=== PATIENT | female | born 1940 | race Caucasian/White ===

== ENCOUNTER 2017-03-04 11:59 | Emergency (ER) | payer MEDICARE, OTHER ==
--- NOTE | 2017-03-04 13:12 | EDM.PDOC ---
ED HPI GENERAL MEDICAL PROBLEM - General Chief Complaint: General Stated Complaint: LEFT NECK PAIN WITH SHOULDER PAIN Time Seen by Provider: 03/04/17 12:50 Source of Information: Reports: Patient, Old Records, RN History Limitations: Reports: No Limitations - History of Present Illness INITIAL COMMENTS - FREE TEXT/NARRATIVE: 76 yo female here with intermittent L post neck and shoulder pain. Occasionally radiates down her arm. Had a myocardial perfusion scan 18 mos ago that was normal. Sx's not related to exertion or anything else that the patient can think of. Recently was seen in the clinic for this and had a normal EKG and CPK. Has been using ICY HOT on her arm and has broken out from this with an itchy rash. Sx's for almost a month now. Clinic tests include X-rays that reveal marked DJD of the neck. Is not currently taking any meds for her sx's. Was offered PT in the clinic and declined at that time. Onset: Gradual Onset Date: 02/06/17 Duration: Week(s):, Waxing/Waning Location: Reports: Neck (L posterior), Back (L side) Quality: Reports: Ache Severity: Moderate Improves with: Reports: Other (Massage) Worsens with: Reports: Other (unknown) Context: Reports: Other (DJD of spine) Associated Symptoms: Reports: No Other Symptoms Treatments MANAGER PORT: Reports: Other (see below) (massage from sister and ICY HOT) - Related Data Allergies Allergy/AdvReac Type Severity Reaction Status Date / Time atorvastatin calcium Allergy Rash Verified 03/04/17 12:27 [From Lipitor] tramadol Allergy Itching Verified 03/04/17 12:27 Home Meds: Home Meds Aspirin [Halfprin] 81 mg PO DAILY 11/19/13 [History] Simvastatin [Zocor] 20 mg PO BEDTIME 11/19/13 [History] Vitamin B Complex [B Complex] 1 each PO DAILY 11/19/13 [History] Multivitamin [Multivitamins] 1 tab PO DAILY 10/14/15 [History] Cyclobenzaprine [Flexeril] 5 - 10 mg PO TID PRN #14 tab 03/04/17 [Rx] Metoprolol Tartrate 12.5 mg PO BID 03/04/17 [History] amLODIPine [Norvasc] 5 mg PO DAILY 03/04/17 [History] Past Medical History HEENT History: Reports: Impaired Vision Cardiovascular History: Reports: Heart Murmur, High Cholesterol, Hypertension Respiratory History: Reports: Sleep Apnea Gastrointestinal History: Reports: Colon Polyp, GERD Genitourinary History: Reports: Renal Calculus INNOVATION ANALYST History: Reports: Endocrine/Metabolic History: Reports: Other (See Below) Other Endocrine/Metabolic History: "prediabetic" - Infectious Disease History Infectious Disease History: Reports: Chicken Pox, Measles, Pertussis (Whooping Cough) - Past Surgical History GI Surgical History: Reports: Appendectomy, Colonoscopy, Polypectomy Female Surgical History: Reports: Hysterectomy Musculoskeletal Surgical History: Reports: Hip Replacement Social & Family History - Tobacco Use Smoking Status *Q: Never Smoker Second Hand Smoke Exposure: No - Caffeine Use Caffeine Use: Reports: Coffee - Recreational Drug Use Recreational Drug Use: No ED ROS GENERAL - Review of Systems Review Of Systems: See Below Constitutional: Reports: No Symptoms HEENT: Reports: No Symptoms Respiratory: Reports: No Symptoms Cardiovascular: Reports: No Symptoms Endocrine: Reports: No Symptoms GI/Abdominal: Reports: No Symptoms : Reports: No Symptoms Musculoskeletal: Reports: Neck Pain, Shoulder Pain (L posterior), Arm Pain (at times, not now) Skin: Reports: Rash (Since using ICY HOT, itchy) Neurological: Reports: No Symptoms Psychiatric: Reports: No Symptoms ED EXAM, GENERAL - Physical Exam Exam: See Below Exam Limited By: No Limitations General Appearance: Alert, WD/WN, No Apparent Distress Eye Exam: Bilateral Eye: Conjunctival Injection, EOMI, Normal Inspection Ears: Normal External Exam, Normal Canal, Hearing Grossly Normal Ear Exam: Bilateral Ear: Auricle Normal, Canal Normal Nose: Normal Inspection, Normal Mucosa, No Blood Throat/Mouth: Normal Inspection, Normal Lips, Normal Oropharynx, Normal Voice, No Airway Compromise Head: Atraumatic, Normocephalic Neck: Normal Inspection, Supple, Tender Lateral (L post lateral neck and trapezius muscle tender with palpation. ), Other (ROM testing is not painful, has limitation to extension of neck only.) Respiratory/Chest: No Respiratory Distress, Lungs Clear, Normal Breath Sounds, No Accessory Muscle Use Cardiovascular: Regular Rate, Rhythm, No Edema GI/Abdominal: Normal Bowel Sounds, Soft, Non-Tender Back Exam: Normal Inspection. No: CVA Tenderness (R), CVA Tenderness (L) Extremities: Normal Inspection, Normal Range of Motion, Non-Tender, No Pedal Edema Neurological: Alert, Oriented, CN II-XII Intact, Normal Cognition, No Motor/ Sensory Deficits Psychiatric: Normal Affect, Normal Mood Skin Exam: Warm, Dry, Intact, Normal Color, Rash (L arm only, red and blotchy, no vesicles(never were any vesicles per patient)) Lymphatic: No Adenopathy Course - Vital Signs Last Recorded V/S: Last Vital Signs Temp 36.7 C 03/04/17 12:32 Pulse 80 03/04/17 12:39 Resp 13 03/04/17 12:39 BP 145/70 H 03/04/17 12:39 Pulse Ox 95 03/04/17 12:39 Departure - Departure Time of Disposition: 13:15 Disposition: Home, Self-Care 01 Condition: Good Clinical Impression: Muscular pain, Arthritis of neck - Discharge Information Prescriptions: Cyclobenzaprine [Flexeril] 5 - 10 mg PO TID PRN #14 tab PRN Reason: Pain Instructions: Shoulder Pain, [id number] Referrals: Renea Rutledge NP [Primary Care Provider] - Forms: ED Department Discharge Additional Instructions: Take Flexeril 5 mg every 8 hrs during the day and 10 mg at bedtime. Try either massage therapy or physical therapy. Moist heat to area. Acetaminophen is also safe to take. Recheck if not improving.
[2017-03-04 13:41] VITALS: BP 128/63
== END 2017-03-04 13:41 | disposition home or self-care (01) ==
LOC: JP.ED 11:59
DX: M46.92 Unspecified inflammatory spondylopathy, cervical region (principal); M79.1 Myalgia; I10 Essential (primary) hypertension; E78.00 Pure hypercholesterolemia, unspecified; Z88.5 Allergy status to narcotic agent; Z88.8 Allergy status to other drugs, medicaments and biological substances; Z79.82 Long term (current) use of aspirin
CPT/HCPCS: 99283

== ENCOUNTER 2019-02-28 06:22 | Day surgery (SDC) | payer MEDICARE, OTHER ==
[2019-02-28] MEDS ORDERED: Sodium Chloride 0.9% 1,000 ML IV SCH (07:15)
[2019-02-28] MEDS ORDERED: fentaNYL 100 MCG/2 ML SDV ONE (07:21)
[2019-02-28] MEDS ORDERED: Propofol 200 MG/20 ML SDV ONE (07:21)
[2019-02-28] MEDS ORDERED: Midazolam 1 MG/ML 2 ML SDV ONE (07:21)
[2019-02-28 10:21] VITALS: BP 125/69; PULSE 90
--- NOTE | 2019-03-01 09:33 | OR ---
DATE OF PROCEDURE: 02/28/2019 SURGEON: Steven Arreguin MD PROCEDURE: Colonoscopy. FINDINGS: 1. Diverticulosis, mild, limited to sigmoid colon. 2. Sigmoid colon polyp, approximately 5 mm, completely removed using cold biopsy forceps. 3. Cecal mass, most consistent with a sessile polyp versus malignancy. COMPLICATIONS: None. TELECOM COORDINATOR: None. ANESTHESIA: MAC. PREOPERATIVE DIAGNOSIS: Screening colonoscopy. POSTOPERATIVE DIAGNOSIS: Screening colonoscopy. RISKS: Risks, benefits, alternatives, and limitations including, but not limited to infection, bleeding, perforation were explained to the patient, who wished to proceed. PROCEDURE IN DETAIL: The patient was placed in left lateral decubitus position. Digital rectal exam was performed without abnormality. Scope was introduced and advanced into the cecum itself. Within the cecum, approximately 2 cm from the appendiceal orifice, there was a sessile type mass/polyp. This was identified, and Stephany Ink was used to rosa elena the polyp and to submucosally dissect it for elevation for removal. This was then removed approximately 95% using the hot snare wire. No abnormal bleeding was noted after this. No evidence of perforation. This scope was then brought back and the aforementioned polyp was also identified and completely removed. Diverticulosis would be described as mild, limited to sigmoid colon and without evidence of diverticulitis or bleeding. No abnormalities on retroflexion. The patient tolerated the procedure well. Steven Arreguin MD /[id number]
== END 2019-02-28 10:59 | disposition home or self-care (01) ==
LOC: JP.SDS 06:22
PROVIDERS: ATTEND Surgery
DX: Z12.11 Encounter for screening for malignant neoplasm of colon (principal); D12.0 Benign neoplasm of cecum; D12.4 Benign neoplasm of descending colon; K57.30 Diverticulosis of large intestine without perforation or abscess without bleeding; I10 Essential (primary) hypertension; E78.5 Hyperlipidemia, unspecified; I25.10 Atherosclerotic heart disease of native coronary artery without angina pectoris; E11.9 Type 2 diabetes mellitus without complications; G47.33 Obstructive sleep apnea (adult) (pediatric); Z88.8 Allergy status to other drugs, medicaments and biological substances; Z88.5 Allergy status to narcotic agent; Z79.82 Long term (current) use of aspirin; Z79.899 Other long term (current) drug therapy
CPT/HCPCS: 88305; J2250; J2704; J3010; J7030

== ENCOUNTER 2019-07-12 06:13 | Day surgery (SDC) | payer MEDICARE ==
[2019-07-12] MEDS ORDERED: Dextrose 5%-Lactated Ringers 1,000 ML IV SCH (07:00)
[2019-07-12] MEDS ORDERED: Propofol 200 MG/20 ML SDV ONE (07:54)
[2019-07-12] MEDS ORDERED: fentaNYL 100 MCG/2 ML SDV ONE (07:54)
[2019-07-12 10:40] VITALS: BP 122/82; PULSE 71
--- NOTE | 2019-07-22 14:10 | OR ---
DATE OF PROCEDURE: 07/12/2019 SURGEON: Thaddeus West MD PREOPERATIVE DIAGNOSIS: Status post sessile polyp removal endoscopically in the cecum and descending colon. POSTOPERATIVE DIAGNOSES: 1. Status post sessile polyp removal endoscopically in the cecum and descending colon. 2. No persistent or recurrent polyp formation evident. 3. Left colonic diverticulosis. OPERATIVE PROCEDURE: Flexible colonoscopy. ANESTHESIA: IV sedation. INDICATIONS: This is a 79-year-old who underwent a colonoscopy per Dr. Arreguin, and this past February, the patient was noted to have a polyp involving the descending colon as well as the cecum. The cecal polypectomy was more or less in a piecemeal fashion, and given this, the patient was recommended to undergo a repeat colonoscopy in April. She has deferred this until present, and plan is to proceed with a flexible colonoscopy with biopsies and/or polypectomy as indicated. Potential risks of the procedure including bleeding and perforation were discussed, and the patient wishes to proceed. DETAILS OF PROCEDURE: The patient was taken to the operating room and placed in the left lateral decubitus position. IV sedation was administered, after which a digital rectal exam was performed, and it was unremarkable. Colonoscope was then passed into the rectum with retroflexion revealing uncomplicated hemorrhoidal columns. Scope was eventually passed to the level of the cecum. At no point were there any obvious recurrent or persistent polyp formations. The patient did have some left colonic diverticulosis. Scope was then withdrawn and the above findings reconfirmed. Given the clinical scenario, I think we would recommend a repeat colonoscopy in 1 year again to make sure there is not some regrowth of polypoid tissue within the cecal area specifically. Thaddeus West MD /[id number]
== END 2019-07-12 11:27 | disposition home or self-care (01) ==
LOC: JP.SDS 06:13
PROVIDERS: ATTEND Surgery
DX: K57.30 Diverticulosis of large intestine without perforation or abscess without bleeding (principal); K64.9 Unspecified hemorrhoids; K21.9 Gastro-esophageal reflux disease without esophagitis; E11.9 Type 2 diabetes mellitus without complications; I10 Essential (primary) hypertension; Z98.890 Other specified postprocedural states; Z86.010 Personal history of colon polyps; Z88.8 Allergy status to other drugs, medicaments and biological substances; Z88.5 Allergy status to narcotic agent
CPT/HCPCS: 45378; J2704; J3010; J7121

== ENCOUNTER 2019-12-23 05:22 | Day surgery (SDC) | payer MEDICARE ==
[2019-12-23] MEDS ORDERED: Dextrose 5%-Lactated Ringers 1,000 ML IV SCH (06:00)
[2019-12-23] MEDS ORDERED: fentaNYL 100 MCG/2 ML SDV ONE (07:25)
[2019-12-23] MEDS ORDERED: Propofol 200 MG/20 ML SDV ONE (07:25)
[2019-12-23 08:57] VITALS: PULSE 82
[2019-12-23 08:58] VITALS: BP 119/68
--- NOTE | 2019-12-24 08:48 | OR ---
DATE OF PROCEDURE: 12/23/2019 SURGEON: Thaddeus West MD PREOPERATIVE DIAGNOSIS: Active gastroesophageal reflux disease. POSTOPERATIVE DIAGNOSIS: A large hiatal hernia associated with strikingly ulcerated gastroesophageal reflux disease. OPERATIVE PROCEDURE: Upper gastrointestinal endoscopy with biopsy of esophagogastric junction. ANESTHESIA: IV sedation. INDICATION FOR PROCEDURE: A 79-year-old female presenting with ongoing proton pump inhibitor therapy. She has ongoing heartburn. The plan is to proceed with upper GI endoscopy with biopsies and/or dilation as indicated. Potential risks including bleeding and perforation were discussed, and the patient wishes to proceed. DETAILS OF PROCEDURE: The patient was taken to the operative room placed in a left lateral decubitus position. IV sedation was administered, after which the upper GI endoscope was passed orally through the length of the esophagus into the stomach with retroflexion view of the fundus, thereafter through the pyloric channel into the junction of the third and fourth portions of the duodenum. Findings included some redness and edema of the hypopharynx and larynx. The upper esophageal sphincter, upper esophagus, and esophageal body were otherwise unremarkable. The patient did have a fairly large hiatal hernia measuring 5 cm. The striking finding was that of some coffee-ground material through much of the length of the esophagus, consistent with some low-grade bleeding. At the EG junction, there was active ulcerative esophagitis with 3 well-defined ulcers extending upward from the esophageal junction mucosal line. These were covered with fibrinous exudate. At this point, other than one had some clot over the surface likely resulting in the recent bleeding. Otherwise, the stomach, pyloric channel, and visualized portions of the duodenum were unremarkable. At this point, multiple biopsies were obtained from esophagogastric junction. Sent for histologic evaluation. Minimal bleeding from the biopsy sites was seen, and the procedure then concluded. At this point, will see the patient back on Monday for followup. She would at this point probably be a good candidate for antireflux procedure given the aggressiveness of her reflux disease despite proton pump inhibitor therapy. Thaddeus West MD /[id number]
== END 2019-12-23 09:00 | disposition home or self-care (01) ==
LOC: JP.SDS 05:22
PROVIDERS: ATTEND Surgery
DX: K21.9 Gastro-esophageal reflux disease without esophagitis (principal); K44.9 Diaphragmatic hernia without obstruction or gangrene; K25.9 Gastric ulcer, unspecified as acute or chronic, without hemorrhage or perforation; G47.33 Obstructive sleep apnea (adult) (pediatric); I10 Essential (primary) hypertension; I25.10 Atherosclerotic heart disease of native coronary artery without angina pectoris; E11.9 Type 2 diabetes mellitus without complications
CPT/HCPCS: 43239; 88305; J2704; J3010; J7121

== ENCOUNTER 2019-12-27 06:48 | Inpatient (IN) | payer MEDICARE ==
[~2019-12-27 06:48] MED LIST: Dexamethasone 4 MG/ML SDV ONE; Lidocaine 2% 5 ML SDV ONE; Ondansetron 4 MG/2 ML SDV ONE; Propofol 200 MG/20 ML SDV ONE; Rocuronium 50 MG/5 ML Vial ONE; Succinylcholine 200 MG/10 ML MDV ONE; fentaNYL 250 MCG/5 ML SDV ONE
[2019-12-27] MEDS ORDERED: Acetaminophen 500 MG Tab PO ONE (07:00)
[2019-12-27] MEDS ORDERED: Dextrose 5%-Lactated Ringers 1,000 ML IV SCH (08:00)
[2019-12-27] MEDS ORDERED: Ketamine 500 MG/5 ML MDV IV SCH (08:45)
[2019-12-27] MEDS ORDERED: Ketamine 50 MG in Sodium Chloride 0.9% 49.5 ML IV SCH (08:45)
[2019-12-27] MEDS ORDERED: ceFAZolin 2 GM in Premix Bag 1 BAG IV ONE (09:00)
[2019-12-27] MEDS ORDERED: Midazolam 1 MG/ML 2 ML SDV ONE (10:12)
[2019-12-27] MEDS ORDERED: Glycopyrrolate 0.2 MG/ML 5 ML MDV ONE (10:32)
[2019-12-27] MEDS ORDERED: ePHEDrine 50 MG/ML SDV ONE (10:43)
[2019-12-27] MEDS ORDERED: Sodium Chloride 0.9% 10 ML ONE (10:43)
[2019-12-27] MEDS ORDERED: Sugammadex Sodium 200 MG/2 ML VIAL ONE (11:10)
[2019-12-27] MEDS ORDERED: Rocuronium 50 MG/5 ML Vial ONE (11:21)
[2019-12-27] MEDS ORDERED: hydrOXYzine HCL 100 MG/2 ML SDV IM ONE (11:47)
[2019-12-27] MEDS ORDERED: fentaNYL 100 MCG/2 ML SDV IVPUSH ONE (12:14)
[2019-12-27] MEDS ORDERED: hydrOXYzine HCL 100 MG/2 ML SDV IM PRN (13:22)
[2019-12-27] MEDS ORDERED: Ondansetron 4 MG/2 ML SDV IVPUSH PRN (13:23)
[2019-12-27] MEDS: Pantoprazole 40 MG Vial IV SCH (14:07)
[2019-12-27] MEDS: Metoclopramide 10 MG/2 ML SDV IVPUSH SCH ×2 (16:23→21:01)
[2019-12-27] MEDS: Acetaminophen 325 MG Tab PO SCH ×2 (16:24→21:01)
[2019-12-27] MEDS ORDERED: HYDROmorphone 0.5 MG/0.5 ML Syringe IVPUSH PRN (17:00)
[2019-12-27] MEDS ORDERED: HYDROmorphone 1 MG/ML Syringe IV PRN (17:00)
[2019-12-27] MEDS: Dextrose 5%-Lactated Ringers 1,000 ML IV SCH (19:37)
[2019-12-27] MEDS: Simvastatin 20 MG Tab PO SCH (20:51)
[2019-12-27] MEDS: amLODIPine 5 MG Tab PO SCH (20:51)
[2019-12-27] MEDS: Metoprolol Tartrate 25 MG Tab PO SCH (20:51)
[2019-12-28] MEDS: Dextrose 5%-Lactated Ringers 1,000 ML IV SCH (01:59)
[2019-12-28] MEDS: Acetaminophen 325 MG Tab PO SCH ×4 (03:44→22:08)
[2019-12-28] MEDS: Metoclopramide 10 MG/2 ML SDV IVPUSH SCH ×2 (03:45→09:30)
[2019-12-28] MEDS ORDERED: Dextrose 5%-Lactated Ringers 1,000 ML IV SCH (08:15)
[2019-12-28] MEDS: Aspirin 81 MG Tab.EC PO SCH (09:30)
[2019-12-28] MEDS: Metoprolol Tartrate 25 MG Tab PO SCH ×2 (09:30→20:38)
[2019-12-28] MEDS: Pantoprazole 40 MG Vial IV SCH (09:30)
[2019-12-28] MEDS: amLODIPine 5 MG Tab PO SCH (20:38)
[2019-12-28] MEDS: Simvastatin 20 MG Tab PO SCH (20:38)
[2019-12-29] MEDS: Acetaminophen 325 MG Tab PO SCH ×2 (04:30→09:02)
[2019-12-29] MEDS: Pantoprazole 40 MG Vial IV SCH (08:26)
[2019-12-29] MEDS: Metoprolol Tartrate 25 MG Tab PO SCH (08:45)
[2019-12-29] MEDS: Aspirin 81 MG Tab.EC PO SCH (08:53)
[2019-12-29 08:58] VITALS: BP 97/46; PULSE 72
--- NOTE | 2020-01-01 12:09 | PN ---
DATE OF SERVICE: 12/28/2019 The patient has been afebrile with stable vital signs status post laparoscopic Ian fundoplication yesterday. Clinically, she is doing well at this point. We will repeat a full liquid diet. She did not like the way the Reglan made her feel. We will discontinue that, and she is only requiring Tylenol for pain, otherwise. She will likely be ready for discharge home tomorrow. Thaddeus West MD /[id number]
--- NOTE | 2020-01-01 12:48 | DISCH ---
FINAL DIAGNOSES: 1. Gastroesophageal reflux disease refractory to medical management associated with large paraesophageal diaphragmatic hernia. 2. Mediastinal lipoma. 3. 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 SECONDARY DIAGNOSES: 1. History of hypertension, history of hyperlipidemia. 2. History of osteoarthritis. 3. Obstructive sleep apnea, on CPAP. 4. Type 2 diabetes mellitus, not requiring specific medical treatment. OPERATIVE PROCEDURE: Done on 12/26, diagnostic laparoscopy with: 1. Repair of paraesophageal diaphragmatic hernia with mesh with Ian fundoplication. 2. Excision of mediastinal lipoma. 3. Excision of submucosal nodular lesion on gastric fundus. SUMMARY: This is a 79-year-old female presenting with quite severe heartburn. On Monday, 12/22, the patient underwent an upper endoscopy, which showed a large hiatal hernia with actively bleeding ulcerated esophagitis despite the patient being on twice a day omeprazole 40 mg regimen. Given this, the patient wished to proceed with a Ian fundoplication, which was done on the date of admission with the attendant above procedures. The small nodular lesion on the gastric fundus most likely will be a gastrointestinal stromal tumor, which at that size will not require any specific followup. The patient tolerated full liquid diet well and will be discharged home with a full liquid diet for 2 weeks postoperatively, then begin soft solids as tolerated and requiring only Tylenol for pain. Follow up with Dr. West at [facility] on 01/08/2020. /[id number]
--- NOTE | 2020-01-02 15:53 | OR ---
DATE OF PROCEDURE: 12/27/2019 SURGEON: Thaddeus West MD PREOPERATIVE DIAGNOSIS: Gastroesophageal reflux disease refractory to medical management associated with a large hiatal hernia. POSTOPERATIVE DIAGNOSES: 1. Large paraesophageal diaphragmatic hernia with associated gastroesophageal reflux disease refractory to medical management. 2. Mediastinal lipoma. 3. Submucosal nodular lesion, gastric fundus. OPERATIVE PROCEDURES: Diagnostic laparoscopy with: 1. Repair of a paraesophageal diaphragmatic hernia with mesh with Ian fundoplication (72481). 2. Excision of a mediastinal lipoma (87439). 3. Excision of a submucosal nodular lesion, gastric fundus (47929). ANESTHESIA: General. PRODUCT INTRODUCTION MANAGER: Nazanin Garcia PA-C INDICATIONS FOR PROCEDURE: This is a 79-year-old female presenting with gastroesophageal reflux disease refractory to medical management. Earlier this week, the patient underwent an upper endoscopy and while on b.i.d. proton pump inhibitor had active bleeding from ulcers within her distal esophagus. After preoperative evaluation and discussion, she wished to proceed with a Ian fundoplication. Potential risks, including bleeding, infection, injury to underlying viscera, problems with fundoplication such as dysphagia, gas-bloat syndrome, and disorders of gastric emptying rate as well as possible incomplete relief of reflux symptoms and lastly the remote possibility of cardiopulmonary, septic, or hemorrhagic complications leading to , were discussed, and the patient wishes to proceed. DETAILS OF PROCEDURE: The patient was taken to the operating room, and after general endotracheal anesthesia was induced, she was placed in lithotomy position and the abdomen prepped and draped. 15 cm inferior and 5 cm left of the xiphoid process, a transverse incision was made and the peritoneal cavity entered under direct vision with an Optiview trocar and inflated to 15 mmHg pressure with CO2. The laparoscope was then reinserted. No underlying trocar insertion site injuries were seen. Following this, 4 additional trocars were placed across the upper and mid abdomen, and general exploration was undertaken. As expected, the patient had a quite large paraesophageal hernia with prolapse of some omentum alongside of the hernia in addition to the large amount of stomach and perigastric fat being drawn up into the hernia site. In the lateral gastric fundus, the patient was noted to have a roughly 2 or 3 mm nodular submucosal mass. This would be suggestive of a small gastrointestinal stromal tumor, and this was excised with surgical farhan with a small margin of normal stomach underlying it. At this point, the hernia was reduced, and the esophagus was dissected away from the crura circumferentially with aid of a Harmonic scalpel. During the course of the dissection, a significant mediastinal lipoma was encountered, and to facilitate more adequate crural repair, this was removed, and once a roughly 5 cm length of intraabdominal esophagus was established, the posterior crural repair was accomplished with some 0 Ethibond sutures reinforced with PTFE pledgets and then further reinforced with Phasix ST Mesh placed in a horseshoe configuration over the crural repair and then fixed to the crura on each side with titanium tacking screws. At this point, beginning in the mid greater curvature, the omentum was divided away from the gastric wall this was continued with the Harmonic scalpel up to and through the angle of His and included division of the highest and posterior short gastric vessels. This resulted in a very nicely mobile fundus, which was retrieved through the retroesophageal window. Anesthesia then passed a guidewire, followed by a 54-Cypriot Savary dilator, and a 3-stitched 2 cm fundoplication was then constructed using 0 Ethibond sutures reinforced with PTFE pledgets. Each of the sutures included bites of underlying esophagus. Two sutures were then placed between the fundoplication and the overlying diaphragm with the same stitch/pledget combination, and at that point, the guidewire and dilator were removed, and the fundoplication appeared to be intact. No further problems were noted. The trocars were removed, the peritoneal cavity deflated, and the incision closed with some 4-0 Vicryl stitch. Physician retail sales assistant Nazanin Garcia played an essential role in assisting in this case, helping to position the patient and retract structures as needed as well as suturing and cutting sutures when indicated. Her presence improved patient safety and decreased the operative time. Thaddeus West MD /[id number]
== END 2019-12-29 10:25 | disposition home or self-care (01) | DRG 327 ==
LOC: JP.SDSSCHI 06:48 → JP.SDS 06:48 → EDSTATUS 09:30 → JP.MS 11:50
PROVIDERS: ADMIT Surgery; ATTEND Surgery
PROC: 0BUT4JZ Supplement Diaphragm with Synthetic Substitute, Percutaneous Endoscopic Approach (ICD-10-PCS; principal; 2019-12-27)
PROC: 0DB64ZZ Excision of Stomach, Percutaneous Endoscopic Approach (ICD-10-PCS; 2019-12-27)
PROC: 0JB63ZZ Excision of Chest Subcutaneous Tissue and Fascia, Percutaneous Approach (ICD-10-PCS; 2019-12-27)
DX: K21.9 Gastro-esophageal reflux disease without esophagitis (principal); C49.A2 Gastrointestinal stromal tumor of stomach; I10 Essential (primary) hypertension; E78.5 Hyperlipidemia, unspecified; E11.9 Type 2 diabetes mellitus without complications; Z79.82 Long term (current) use of aspirin; Z79.899 Other long term (current) drug therapy; Z87.442 Personal history of urinary calculi; M19.90 Unspecified osteoarthritis, unspecified site; K44.9 Diaphragmatic hernia without obstruction or gangrene; D17.4 Benign lipomatous neoplasm of intrathoracic organs; G47.33 Obstructive sleep apnea (adult) (pediatric); I83.029 Varicose veins of left lower extremity with ulcer of unspecified site
CPT/HCPCS: 36415; 80053; 83735; 83880; 84100; 85027; 88304; 88305; 88341; 88342; 94762; A9270-GY; C1713; C1781; C9113; J0171; J0330; J0690; J1100; J2001; J2250; J2405; J2704; J2765; J2795; J3010; J3410; J3490; J7121

== ENCOUNTER 2020-08-04 08:39 | Day surgery (SDC) | payer MEDICARE ==
[~2020-08-04 08:39] MED LIST changes: -Dexamethasone 4 MG/ML SDV ONE; -Lidocaine 2% 5 ML SDV ONE; -Ondansetron 4 MG/2 ML SDV ONE; -Rocuronium 50 MG/5 ML Vial ONE; -Succinylcholine 200 MG/10 ML MDV ONE; +fentaNYL 100 MCG/2 ML SDV ONE; -fentaNYL 250 MCG/5 ML SDV ONE
[2020-08-04] MEDS ORDERED: Dextrose 5%-Lactated Ringers 1,000 ML IV SCH (10:00)
[2020-08-04] MEDS ORDERED: Atropine 0.4 MG/ML SDV ONE (13:39)
[2020-08-04 14:52] VITALS: BP 124/76; PULSE 86
--- NOTE | 2020-08-15 16:47 | OR ---
DATE OF PROCEDURE: 08/04/2020 SURGEON: Thaddeus West MD PREOPERATIVE DIAGNOSIS: History of colon polyps. POSTOPERATIVE DIAGNOSES: 1. No recurrent colon polyps. 2. Uncomplicated left colonic diverticulosis. OPERATIVE PROCEDURE: Flexible colonoscopy. ANESTHESIA: IV sedation. INDICATIONS FOR PROCEDURE: This is an 80-year-old female presenting for followup colonoscopy. She has history of previous colon polyps. Plan is to proceed with colonoscopy with biopsies and/or polypectomy as indicated. Potential risks including bleeding and perforation were discussed, and the patient wishes to proceed. DETAILS OF PROCEDURE: The patient was taken to the operating room and placed in a left lateral decubitus position. IV sedation was administered after which the initial digital rectal exam was performed and was unremarkable. Colonoscope was then passed to the level of the cecum. The prep was quite good. Only a small amount of liquid stool was present. At this point, there was no evidence of any recurrent polyps or other signs of neoplasia. No areas of colitis. The patient did have a fairly extensive left colonic diverticulosis, but this was otherwise uncomplicated. Scope was then withdrawn, the above findings reconfirmed, and the procedure was then concluded. There were no evident complications. At age 80, this could likely be the patient's last colonoscopy, although with history of colon polyps and if, at say age 85, she is with quite good health, one might consider a followup colonoscopy at that time. Thaddeus West MD /[id number]
== END 2020-08-04 15:45 | disposition home or self-care (01) ==
LOC: JP.SDS 08:39
PROVIDERS: ATTEND Surgery
DX: Z12.11 Encounter for screening for malignant neoplasm of colon (principal); K57.30 Diverticulosis of large intestine without perforation or abscess without bleeding; Z86.010 Personal history of colon polyps; I10 Essential (primary) hypertension; E11.9 Type 2 diabetes mellitus without complications; G47.33 Obstructive sleep apnea (adult) (pediatric); K21.9 Gastro-esophageal reflux disease without esophagitis
CPT/HCPCS: G0105; J0461; J2704; J3010; J7121